=== PATIENT | male | born 1980 ===

== ENCOUNTER 2021-11-30 15:12 | Emergency (ER) | payer OTHER, MEDICAID ==
[2021-11-30] MEDS ORDERED: Acetaminophen/HYDROcodone 325-5 MG Tab PO ONE (15:13)
[2021-11-30] MEDS ORDERED: Ketorolac 30 MG/ML SDV IM ONE (18:27)
[2021-11-30] MEDS ORDERED: Acetaminophen/HYDROcodone 325-10 MG Tab PO ONE (18:27)
[2021-11-30] MEDS ORDERED: Acetaminophen/HYDROcodone 325-5 MG Tab ONE (18:36)
== END 2021-11-30 18:48 | disposition home or self-care (01) ==
LOC: DL.ED 15:12
DX: S43.51XA Sprain of right acromioclavicular joint, initial encounter (principal); V19.9XXA Pedal cyclist (driver) (passenger) injured in unspecified traffic accident, initial encounter
CPT/HCPCS: 73030; 96372; 99283; 99284; A9270; J1885